=== PATIENT | male | born 1955 | race African-American/Black ===

== ENCOUNTER 2020-08-05 08:32 | Inpatient (IN) ==
[2020-08-05] MEDS ORDERED: ASPIRIN 325 MG TABLET PO STA (09:16)
[2020-08-05 09:26] LABS: Basophils # 0.1 10*3/uL (0.0-0.2); Basophils % 0.5 % (0.0-0.8); Eosinophils # 0.1 10*3/uL (0.0-0.87); Hematocrit 39.7 VOL% (42.0-52.0); Hemoglobin 12.3 GM/DL (14.0-18.0); Immature Granulocytes % 0.7 %; Immature Granulocytes Absolute 0.07 #; Lymphocytes # 1.6 10*3/uL (1.4-4.0); Lymphocytes % 17.3 % (21.2-54.2); Mean Corpuscular Volume 100.8 FL (87-102); Mean Platelet Volume 10.9 FL (9.6-12.0); Monocytes % 15.5 % (1.7-12.7); Platelet Count 190 T/CUMM (130-400); Red Blood Count 3.94 MC/CUMM (3.8-5.5); Red Cell Distribution Width 17.5 % (9.3-17.3); White Blood Count 9.4 T/CUMM (4-12)
[2020-08-05 09:54] LABS: Albumin 2.6 G/DL (3.4-5.0); Bilirubin,Total 0.4 MG/DL (0.2-1.0); Calcium 8.9 MG/DL (8.5-10.1); Osmolality,Calculated 276.8 MOS/KG (273-304); Potassium 5.1 MMOL/L (3.5-5.1); Total Protein 6.6 G/DL (6.4-8.2)
[2020-08-05] MEDS ORDERED: AZITHROMYCIN 250 MG TABLET PO STA (09:54)
[2020-08-05] MEDS ORDERED: cefTRIAXone 1,000 MG in SODIUM CHLORIDE 0.9% 100 ML IV STA (09:54)
[2020-08-05] MEDS ORDERED: DEXTROSE 50% 25 GM/50 ML VIAL IV PRN (12:51)
[2020-08-05] MEDS ORDERED: ACETAMINOPHEN 325 MG TABLET PO PRN (12:51)
[2020-08-05] MEDS ORDERED: GLUCAGON 1 MG VIAL IM PRN (12:51)
[2020-08-05] MEDS ORDERED: ONDANSETRON 4 MG/2 ML VIAL IV PRN (12:51)
[2020-08-05] MEDS ORDERED: AZITHROMYCIN INJ 500 MG in SODIUM CHLORIDE 0.9% 250 ML IV SCH (13:00)
[2020-08-05] MEDS ORDERED: cefTRIAXone 1,000 MG in SODIUM CHLORIDE 0.9% 100 ML IV SCH (13:00)
[2020-08-05] MEDS ORDERED: ALBUTEROL/IPRATROPIUM 3 ML NEB RESP TX ONE (13:31)
[2020-08-05] MEDS ORDERED: NITROGLYCERIN SL 0.4 MG TABLET SL PRN (18:29)
[2020-08-05] MEDS ORDERED: INDOMETHACIN 25 MG CAPSULE PO SCH (21:00)
[2020-08-05] MEDS ORDERED: DOCUSATE SODIUM 100 MG CAPSULE PO ONE (22:07)
[2020-08-05] MEDS: ATORVASTATIN 20 MG TABLET PO SCH (22:51)
[2020-08-05] MEDS: POLYETHYLENE GLYCOL POWDER 17 GM PACK PO PRN (22:51)
[2020-08-05] MEDS: propylthiouraciL 50 MG TABLET PO SCH (22:51)
[2020-08-05] MEDS: APIXABAN 2.5 MG TABLET PO SCH (22:52)
[2020-08-05] MEDS: METOPROLOL TARTRATE 25 MG TABLET PO SCH (22:52)
[2020-08-05] MEDS: AMIODARONE 200 MG TABLET PO SCH (22:52)
[2020-08-06 07:08] LABS: Basophils # 0.1 10*3/uL (0.0-0.2); Basophils % 0.7 % (0.0-0.8); Eosinophils # 0.1 10*3/uL (0.0-0.87); Eosinophils % 1.5 % (0.00-10.9); Hematocrit 40.3 VOL% (42.0-52.0); Hemoglobin 12.5 GM/DL (14.0-18.0); Immature Granulocytes % 0.5 %; Immature Granulocytes Absolute 0.04 #; Lymphocytes # 1.7 10*3/uL (1.4-4.0); Mean Corpuscular Volume 100.5 FL (87-102); Mean Platelet Volume 10.4 FL (9.6-12.0); Monocytes % 14.6 % (1.7-12.7); Neutrophils % 62.7 % (38.7-73.9); Platelet Count 163 T/CUMM (130-400); Red Blood Count 4.01 MC/CUMM (3.8-5.5); Red Cell Distribution Width 17.5 % (9.3-17.3); White Blood Count 8.6 T/CUMM (4-12)
[2020-08-06 07:27] LABS: Calcium 9.5 MG/DL (8.5-10.1); Osmolality,Calculated 276.1 MOS/KG (273-304); Potassium 5.7 MMOL/L (3.5-5.1)
[2020-08-06] MEDS: METOPROLOL TARTRATE 25 MG TABLET PO SCH ×2 (09:40→21:00)
[2020-08-06] MEDS: AMIODARONE 200 MG TABLET PO SCH ×2 (09:40→20:59)
[2020-08-06] MEDS: SEVELAMER CARBONATE 800 MG TABLET PO SCH ×3 (09:40→18:12)
[2020-08-06] MEDS: APIXABAN 2.5 MG TABLET PO SCH ×2 (09:40→20:59)
[2020-08-06] MEDS: allopurinoL 300 MG TABLET PO SCH (09:40)
[2020-08-06] MEDS: amLODIPine 10 MG TABLET PO SCH (09:40)
[2020-08-06] MEDS: DOXYCYCLINE HYCLATE INJ 100 MG in SODIUM CHLORIDE 0.9% 100 ML IV SCH ×2 (09:49→21:00)
[2020-08-06] MEDS ORDERED: MAGNESIUM HYDROXIDE SUSP 30 ML UDCUP PO PRN (11:25)
[2020-08-06] MEDS: POLYETHYLENE GLYCOL POWDER 17 GM PACK PO PRN (11:44)
[2020-08-06] MEDS: DOCUSATE SODIUM 100 MG CAPSULE PO SCH ×2 (11:44→20:59)
[2020-08-06] MEDS: propylthiouraciL 50 MG TABLET PO SCH ×2 (11:44→20:59)
[2020-08-06] MEDS ORDERED: cefTRIAXone 1,000 MG in SODIUM CHLORIDE 0.9% 100 ML IV SCH (13:00)
[2020-08-06] MEDS: SKIN HEALING OINT (AQUAPHOR) 50 GM TUBE TOP SCH (13:27)
[2020-08-06] MEDS ORDERED: AZITHROMYCIN INJ 500 MG in SODIUM CHLORIDE 0.9% 250 ML IV SCH (14:00)
[2020-08-06] MEDS ORDERED: HEPARIN 10,000 UNIT/10 ML VIAL IV PRN (14:16)
[2020-08-06] MEDS: ATORVASTATIN 20 MG TABLET PO SCH (20:58)
[2020-08-07 05:22] LABS: Basophils % 0.6 % (0.0-0.8); Eosinophils # 0.1 10*3/uL (0.0-0.87); Eosinophils % 1.5 % (0.00-10.9); Hematocrit 39.3 VOL% (42.0-52.0); Hemoglobin 12.3 GM/DL (14.0-18.0); Immature Granulocytes % 0.8 %; Immature Granulocytes Absolute 0.06 #; Lymphocytes # 1.6 10*3/uL (1.4-4.0); Lymphocytes % 21.5 % (21.2-54.2); Mean Corpuscular HGB Conc 31.3 GM/DL (32-36); Mean Corpuscular Volume 100.3 FL (87-102); Mean Platelet Volume 11.7 FL (9.6-12.0); Monocytes % 15.5 % (1.7-12.7); Neutrophils % 60.1 % (38.7-73.9); Platelet Count 182 T/CUMM (130-400); Red Blood Count 3.92 MC/CUMM (3.8-5.5); Red Cell Distribution Width 17.4 % (9.3-17.3); White Blood Count 7.2 T/CUMM (4-12)
[2020-08-07 05:39] LABS: Calcium 8.9 MG/DL (8.5-10.1); Osmolality,Calculated 273.1 MOS/KG (273-304); Potassium 4.5 MMOL/L (3.5-5.1)
[2020-08-07] MEDS: DOXYCYCLINE HYCLATE INJ 100 MG in SODIUM CHLORIDE 0.9% 100 ML IV SCH ×2 (08:31→21:44)
[2020-08-07] MEDS: SEVELAMER CARBONATE 800 MG TABLET PO SCH ×3 (08:31→17:10)
[2020-08-07] MEDS: SKIN HEALING OINT (AQUAPHOR) 50 GM TUBE TOP SCH (08:32)
[2020-08-07] MEDS: METOPROLOL TARTRATE 25 MG TABLET PO SCH ×2 (08:32→21:44)
[2020-08-07] MEDS: allopurinoL 300 MG TABLET PO SCH (08:32)
[2020-08-07] MEDS: amLODIPine 10 MG TABLET PO SCH (08:32)
[2020-08-07] MEDS: DOCUSATE SODIUM 100 MG CAPSULE PO SCH ×2 (08:32→21:43)
[2020-08-07] MEDS: APIXABAN 2.5 MG TABLET PO SCH (08:32)
[2020-08-07] MEDS: AMIODARONE 200 MG TABLET PO SCH ×2 (08:32→21:43)
[2020-08-07] MEDS: POLYETHYLENE GLYCOL POWDER 17 GM PACK PO SCH (08:33)
[2020-08-07] MEDS: cefTRIAXone 1,000 MG in SODIUM CHLORIDE 0.9% 100 ML IV SCH (11:34)
[2020-08-07] MEDS: WARFARIN 5 MG TABLET PO SCH (11:34)
[2020-08-07] MEDS: propylthiouraciL 50 MG TABLET PO SCH ×2 (11:34→21:43)
[2020-08-07] MEDS: LACTULOSE 20 GM/30 ML UDCUP PO PRN (11:35)
[2020-08-07] MEDS: HEPARIN DRIP 25,000 UNITS/500 ML PREMIX IV SCH (13:05)
[2020-08-07] MEDS ORDERED: TUBERCULIN SKIN TEST 0.1 ML SYRINGE INTRADERM ONE (15:00)
[2020-08-07] MEDS: ATORVASTATIN 20 MG TABLET PO SCH (21:43)
[2020-08-08] MEDS: HEPARIN DRIP 25,000 UNITS/500 ML PREMIX IV SCH ×2 (04:34→23:14)
[2020-08-08 05:33] LABS: Basophils % 0.5 % (0.0-0.8); Eosinophils # 0.1 10*3/uL (0.0-0.87); Eosinophils % 1.7 % (0.00-10.9); Hematocrit 36.2 VOL% (42.0-52.0); Hemoglobin 12.1 GM/DL (14.0-18.0); Immature Granulocytes % 0.6 %; Immature Granulocytes Absolute 0.05 #; Lymphocytes # 1.7 10*3/uL (1.4-4.0); Lymphocytes % 22.1 % (21.2-54.2); Mean Corpuscular HGB Conc 33.4 GM/DL (32-36); Mean Corpuscular Volume 97.3 FL (87-102); Mean Platelet Volume 10.9 FL (9.6-12.0); Monocytes % 14.5 % (1.7-12.7); Neutrophils % 60.6 % (38.7-73.9); Platelet Count 163 T/CUMM (130-400); Red Blood Count 3.72 MC/CUMM (3.8-5.5); Red Cell Distribution Width 17.1 % (9.3-17.3); White Blood Count 7.7 T/CUMM (4-12)
[2020-08-08 05:46] LABS: INR 1.1; PT Patient Result 12.4 SECS (10.5-12.0)
[2020-08-08 05:54] LABS: Calcium 9.5 MG/DL (8.5-10.1); Osmolality,Calculated 274.4 MOS/KG (273-304); Potassium 4.9 MMOL/L (3.5-5.1)
[2020-08-08] MEDS: WARFARIN 5 MG TABLET PO SCH (08:39)
[2020-08-08] MEDS: SEVELAMER CARBONATE 800 MG TABLET PO SCH ×3 (08:39→16:57)
[2020-08-08] MEDS: propylthiouraciL 50 MG TABLET PO SCH ×3 (08:39→21:13)
[2020-08-08] MEDS: amLODIPine 10 MG TABLET PO SCH (08:39)
[2020-08-08] MEDS: allopurinoL 300 MG TABLET PO SCH (08:39)
[2020-08-08] MEDS: DOCUSATE SODIUM 100 MG CAPSULE PO SCH ×2 (08:39→21:13)
[2020-08-08] MEDS: AMIODARONE 200 MG TABLET PO SCH ×2 (08:40→21:13)
[2020-08-08] MEDS: METOPROLOL TARTRATE 25 MG TABLET PO SCH ×2 (08:40→21:13)
[2020-08-08] MEDS: POLYETHYLENE GLYCOL POWDER 17 GM PACK PO SCH (09:03)
[2020-08-08] MEDS: SKIN HEALING OINT (AQUAPHOR) 50 GM TUBE TOP SCH (09:03)
[2020-08-08] MEDS: DOXYCYCLINE HYCLATE INJ 100 MG in SODIUM CHLORIDE 0.9% 100 ML IV SCH (09:03)
[2020-08-08] MEDS: cefTRIAXone 1,000 MG in SODIUM CHLORIDE 0.9% 100 ML IV SCH (16:00)
[2020-08-08] MEDS: DOXYCYCLINE HYCLATE 100 MG CAPSULE PO SCH ×2 (16:00→21:13)
[2020-08-08] MEDS: ATORVASTATIN 20 MG TABLET PO SCH (21:13)
[2020-08-09 06:35] LABS: INR 1.2
[2020-08-09 06:37] LABS: Partial Thromboplastin Time 97.6 SECS (23.9-33.8)
[2020-08-09] MEDS: POLYETHYLENE GLYCOL POWDER 17 GM PACK PO SCH (08:56)
[2020-08-09] MEDS: AMIODARONE 200 MG TABLET PO SCH ×2 (08:57→21:04)
[2020-08-09] MEDS: DOXYCYCLINE HYCLATE 100 MG CAPSULE PO SCH ×2 (08:57→21:03)
[2020-08-09] MEDS: DOCUSATE SODIUM 100 MG CAPSULE PO SCH ×2 (08:57→21:03)
[2020-08-09] MEDS: amLODIPine 10 MG TABLET PO SCH (08:57)
[2020-08-09] MEDS: METOPROLOL TARTRATE 25 MG TABLET PO SCH ×2 (08:57→21:03)
[2020-08-09] MEDS: allopurinoL 300 MG TABLET PO SCH (08:57)
[2020-08-09] MEDS: propylthiouraciL 50 MG TABLET PO SCH ×3 (08:57→21:03)
[2020-08-09] MEDS ORDERED: WARFARIN 5 MG TABLET PO SCH (09:00)
[2020-08-09] MEDS: SKIN HEALING OINT (AQUAPHOR) 50 GM TUBE TOP SCH (09:17)
[2020-08-09] MEDS: SEVELAMER CARBONATE 800 MG TABLET PO SCH ×3 (09:53→16:51)
[2020-08-09] MEDS: cefTRIAXone 1,000 MG in SODIUM CHLORIDE 0.9% 100 ML IV SCH (11:34)
[2020-08-09] MEDS: ATORVASTATIN 20 MG TABLET PO SCH (21:03)
[2020-08-10 05:36] LABS: Basophils # 0.1 10*3/uL (0.0-0.2); Basophils % 1.1 % (0.0-0.8); Eosinophils # 0.2 10*3/uL (0.0-0.87); Eosinophils % 2.4 % (0.00-10.9); Hematocrit 34.1 VOL% (42.0-52.0); Hemoglobin 11.1 GM/DL (14.0-18.0); Immature Granulocytes % 0.7 %; Immature Granulocytes Absolute 0.05 #; Lymphocytes # 1.6 10*3/uL (1.4-4.0); Lymphocytes % 22.3 % (21.2-54.2); Mean Corpuscular HGB Conc 32.6 GM/DL (32-36); Mean Corpuscular Volume 98.3 FL (87-102); Mean Platelet Volume 11.5 FL (9.6-12.0); Neutrophils % 55.5 % (38.7-73.9); Platelet Count 176 T/CUMM (130-400); Red Blood Count 3.47 MC/CUMM (3.8-5.5); Red Cell Distribution Width 17.2 % (9.3-17.3); White Blood Count 7.2 T/CUMM (4-12)
[2020-08-10 05:53] LABS: Calcium 9.8 MG/DL (8.5-10.1); Osmolality,Calculated 282.7 MOS/KG (273-304); Potassium 4.6 MMOL/L (3.5-5.1)
[2020-08-10 06:10] LABS: Free T4 (Free Thyroxine) 1.21 NG/DL (0.76-1.46); Thyroid Stimulating Hormone 0.08 uIU/ml (0.358-3.74)
[2020-08-10 06:24] LABS: Eosinophils 5 % (0-10); Lymphocytes 27 % (20-55); Platelet Estimate Normal; Segmented Neutrophils 55 % (50-85); Total Cells Counted 100
[2020-08-10] MEDS: amLODIPine 10 MG TABLET PO SCH (08:50)
[2020-08-10] MEDS: DOCUSATE SODIUM 100 MG CAPSULE PO SCH ×2 (08:50→20:21)
[2020-08-10] MEDS: DOXYCYCLINE HYCLATE 100 MG CAPSULE PO SCH ×2 (08:50→20:20)
[2020-08-10] MEDS: SEVELAMER CARBONATE 800 MG TABLET PO SCH ×3 (08:50→17:45)
[2020-08-10] MEDS: AMIODARONE 200 MG TABLET PO SCH (08:50)
[2020-08-10] MEDS: propylthiouraciL 50 MG TABLET PO SCH ×3 (08:50→20:20)
[2020-08-10] MEDS: allopurinoL 300 MG TABLET PO SCH (08:51)
[2020-08-10] MEDS: APIXABAN 2.5 MG TABLET PO SCH ×2 (08:51→20:20)
[2020-08-10] MEDS: POLYETHYLENE GLYCOL POWDER 17 GM PACK PO SCH (11:04)
[2020-08-10] MEDS: METOPROLOL TARTRATE 25 MG TABLET PO SCH ×2 (11:04→20:20)
[2020-08-10] MEDS: SKIN HEALING OINT (AQUAPHOR) 50 GM TUBE TOP SCH (11:46)
[2020-08-10] MEDS: cefTRIAXone 1,000 MG in SODIUM CHLORIDE 0.9% 100 ML IV SCH (13:40)
[2020-08-10] MEDS: LACTULOSE 20 GM/30 ML UDCUP PO PRN (14:26)
[2020-08-10] MEDS: ATORVASTATIN 20 MG TABLET PO SCH (20:21)
[2020-08-11 05:06] LABS: Basophils % 0.5 % (0.0-0.8); Eosinophils # 0.1 10*3/uL (0.0-0.87); Eosinophils % 1.9 % (0.00-10.9); Hematocrit 35.5 VOL% (42.0-52.0); Hemoglobin 11.2 GM/DL (14.0-18.0); Immature Granulocytes % 0.9 %; Immature Granulocytes Absolute 0.07 #; Lymphocytes # 1.8 10*3/uL (1.4-4.0); Lymphocytes % 24.1 % (21.2-54.2); Mean Corpuscular HGB Conc 31.5 GM/DL (32-36); Mean Corpuscular Volume 98.1 FL (87-102); Monocytes % 16.7 % (1.7-12.7); Neutrophils % 55.9 % (38.7-73.9); Platelet Count 169 T/CUMM (130-400); Red Blood Count 3.62 MC/CUMM (3.8-5.5); Red Cell Distribution Width 17.1 % (9.3-17.3); White Blood Count 7.4 T/CUMM (4-12)
[2020-08-11 05:19] LABS: Calcium 9.4 MG/DL (8.5-10.1); Osmolality,Calculated 280.1 MOS/KG (273-304); Potassium 4.8 MMOL/L (3.5-5.1)
[2020-08-11 05:25] LABS: Eosinophils 4 % (0-10); Hypochromasia 1+; Lymphocytes 25 % (20-55); Metamyelocytes 1 %; Segmented Neutrophils 57 % (50-85); Total Cells Counted 100
[2020-08-11 05:26] LABS: Anisocytosis 1+; Microcytosis 1+
[2020-08-11 05:27] LABS: Atypical Lymphocytes Few; Ovalocytes Slight; Platelet Estimate Adequate
[2020-08-11] MEDS: POLYETHYLENE GLYCOL POWDER 17 GM PACK PO SCH (09:04)
[2020-08-11] MEDS: propylthiouraciL 50 MG TABLET PO SCH ×3 (09:05→20:42)
[2020-08-11] MEDS: DOCUSATE SODIUM 100 MG CAPSULE PO SCH ×2 (09:05→20:42)
[2020-08-11] MEDS: SEVELAMER CARBONATE 800 MG TABLET PO SCH ×3 (09:05→16:53)
[2020-08-11] MEDS: amLODIPine 10 MG TABLET PO SCH (09:05)
[2020-08-11] MEDS: DOXYCYCLINE HYCLATE 100 MG CAPSULE PO SCH ×2 (09:05→20:42)
[2020-08-11] MEDS: METOPROLOL TARTRATE 25 MG TABLET PO SCH ×2 (09:06→22:49)
[2020-08-11] MEDS: SKIN HEALING OINT (AQUAPHOR) 50 GM TUBE TOP SCH (09:06)
[2020-08-11] MEDS: APIXABAN 2.5 MG TABLET PO SCH ×2 (09:06→20:42)
[2020-08-11] MEDS: allopurinoL 300 MG TABLET PO SCH (09:06)
[2020-08-11] MEDS: cefTRIAXone 1,000 MG in SODIUM CHLORIDE 0.9% 100 ML IV SCH (16:53)
[2020-08-11] MEDS: ATORVASTATIN 20 MG TABLET PO SCH (20:42)
[2020-08-12 05:14] LABS: Basophils % 0.6 % (0.0-0.8); Eosinophils # 0.2 10*3/uL (0.0-0.87); Eosinophils % 2.3 % (0.00-10.9); Hematocrit 37.9 VOL% (42.0-52.0); Hemoglobin 12.3 GM/DL (14.0-18.0); Immature Granulocytes % 1.2 %; Immature Granulocytes Absolute 0.08 #; Lymphocytes # 1.7 10*3/uL (1.4-4.0); Lymphocytes % 26.2 % (21.2-54.2); Mean Corpuscular HGB Conc 32.5 GM/DL (32-36); Mean Corpuscular Volume 97.2 FL (87-102); Mean Platelet Volume 10.6 FL (9.6-12.0); Monocytes % 18.1 % (1.7-12.7); Neutrophils % 51.6 % (38.7-73.9); Platelet Count 183 T/CUMM (130-400); White Blood Count 6.5 T/CUMM (4-12)
[2020-08-12 05:40] LABS: Calcium 9.4 MG/DL (8.5-10.1); Potassium 4.7 MMOL/L (3.5-5.1)
[2020-08-12 05:49] LABS: Eosinophils 4 % (0-10); Lymphocytes 25 % (20-55); Platelet Estimate Normal; Segmented Neutrophils 53 % (50-85); Total Cells Counted 100
[2020-08-12] MEDS: propylthiouraciL 50 MG TABLET PO SCH (09:10)
[2020-08-12] MEDS: DOCUSATE SODIUM 100 MG CAPSULE PO SCH (09:10)
[2020-08-12] MEDS: DOXYCYCLINE HYCLATE 100 MG CAPSULE PO SCH (09:10)
[2020-08-12] MEDS: POLYETHYLENE GLYCOL POWDER 17 GM PACK PO SCH (09:10)
[2020-08-12] MEDS: METOPROLOL TARTRATE 25 MG TABLET PO SCH (09:11)
[2020-08-12] MEDS: APIXABAN 2.5 MG TABLET PO SCH (09:11)
[2020-08-12] MEDS: allopurinoL 300 MG TABLET PO SCH (09:11)
[2020-08-12] MEDS: amLODIPine 10 MG TABLET PO SCH (09:11)
[2020-08-12] MEDS: SEVELAMER CARBONATE 800 MG TABLET PO SCH (09:11)
[2020-08-12] MEDS: SKIN HEALING OINT (AQUAPHOR) 50 GM TUBE TOP SCH (09:12)
[2020-08-12 11:44] VITALS: BP 124/64
== END 2020-08-12 13:10 | DRG 193 ==
LOC: EDBD → N.EDINP 08:32 → N.ED 08:32 → N.5E 13:56
PROVIDERS: ADMIT Internal Medicine; ATTEND Internal Medicine

== ENCOUNTER 2020-08-27 04:38 | Inpatient (IN) ==
[2020-08-27] MEDS ORDERED: PIPERACILLIN/TAZOBACTAM 3,375 MG in SODIUM CHLORIDE 0.9% 100 ML IV STA (04:52)
[2020-08-27] MEDS ORDERED: methylPREDNISolone SOD SUC 125 MG/2 ML VIAL IV STA (04:52)
[2020-08-27 04:57] LABS: Basophils % 0.4 % (0.0-0.8); Eosinophils # 0.2 10*3/uL (0.0-0.87); Eosinophils % 1.7 % (0.00-10.9); Hematocrit 36.4 VOL% (42.0-52.0); Hemoglobin 11.6 GM/DL (14.0-18.0); Immature Granulocytes % 0.8 %; Immature Granulocytes Absolute 0.08 #; Lymphocytes # 1.5 10*3/uL (1.4-4.0); Lymphocytes % 14.9 % (21.2-54.2); Mean Corpuscular HGB Conc 31.9 GM/DL (32-36); Mean Corpuscular Volume 97.6 FL (87-102); Mean Platelet Volume 12.4 FL (9.6-12.0); Monocytes % 20.3 % (1.7-12.7); Neutrophils % 61.9 % (38.7-73.9); Platelet Count 121 T/CUMM (130-400); Red Blood Count 3.73 MC/CUMM (3.8-5.5); Red Cell Distribution Width 17.4 % (9.3-17.3); White Blood Count 10.2 T/CUMM (4-12)
[2020-08-27] MEDS ORDERED: ALBUTEROL NEB SOLN 5 MG/ML 20 ML/BOTTLE CONT NEB SCH (05:00)
[2020-08-27 05:08] LABS: INR 1.1; PT Patient Result 12.2 SECS (10.5-12.0); Partial Thromboplastin Time 40.5 SECS (23.9-33.8)
[2020-08-27 05:17] LABS: Eosinophils 1 % (0-10); Hypochromasia Slight; Lymphocytes 14 % (20-55); Microcytosis Slight; Platelet Estimate Normal; Segmented Neutrophils 62 % (50-85); Total Cells Counted 100
[2020-08-27 05:28] LABS: Albumin 2.9 G/DL (3.4-5.0); Bilirubin,Total 0.4 MG/DL (0.2-1.0); Calcium 9.2 MG/DL (8.5-10.1); Potassium 4.5 MMOL/L (3.5-5.1); Total Protein 6.4 G/DL (6.4-8.2)
[2020-08-27] MEDS ORDERED: DEXTROSE 50% 25 GM/50 ML VIAL IV PRN (05:49)
[2020-08-27] MEDS ORDERED: GLUCAGON 1 MG VIAL IM PRN (05:49)
[2020-08-27] MEDS ORDERED: LEVOFLOXACIN INJ 750 MG/150 ML PREMIX IV ONE (05:53)
[2020-08-27] MEDS: ALBUTEROL/IPRATROPIUM 3 ML NEB RESP TX SCH ×3 (07:40→20:36)
[2020-08-27] MEDS: PANTOPRAZOLE 40 MG TABLET PO SCH (08:06)
[2020-08-27] MEDS: HEPARIN 5,000 UNIT/1 ML VIAL SUBCUT SCH ×3 (08:06→23:03)
[2020-08-27] MEDS ORDERED: HEPARIN 10,000 UNIT/10 ML VIAL IV SCH (11:00)
[2020-08-27] MEDS: PIPERACILLIN/TAZOBACTAM 3,375 MG in SODIUM CHLORIDE 0.9% 100 ML IV SCH ×2 (14:18→23:02)
[2020-08-27] MEDS: APIXABAN 2.5 MG TABLET PO SCH (21:13)
[2020-08-27] MEDS: ATORVASTATIN 20 MG TABLET PO SCH (21:13)
[2020-08-27] MEDS: METOPROLOL TARTRATE 25 MG TABLET PO SCH (21:13)
[2020-08-28] MEDS: ALBUTEROL/IPRATROPIUM 3 ML NEB RESP TX SCH ×4 (00:48→19:45)
[2020-08-28 05:18] LABS: Basophils % 0.2 % (0.0-0.8); Hematocrit 37.3 VOL% (42.0-52.0); Immature Granulocytes Absolute 0.11 #; Lymphocytes % 9.3 % (21.2-54.2); Mean Corpuscular HGB Conc 32.2 GM/DL (32-36); Mean Corpuscular Volume 96.4 FL (87-102); Monocytes % 10.9 % (1.7-12.7); Neutrophils % 78.6 % (38.7-73.9); Platelet Count 113 T/CUMM (130-400); Red Blood Count 3.87 MC/CUMM (3.8-5.5); Red Cell Distribution Width 17.6 % (9.3-17.3); White Blood Count 10.7 T/CUMM (4-12)
[2020-08-28 05:31] LABS: Calcium 9.5 MG/DL (8.5-10.1); Potassium 4.4 MMOL/L (3.5-5.1)
[2020-08-28] MEDS: APIXABAN 2.5 MG TABLET PO SCH ×3 (07:57→21:11)
[2020-08-28] MEDS: PANTOPRAZOLE 40 MG TABLET PO SCH ×2 (07:57→08:53)
[2020-08-28] MEDS: METOPROLOL TARTRATE 25 MG TABLET PO SCH ×3 (07:58→21:11)
[2020-08-28] MEDS: amLODIPine 10 MG TABLET PO SCH ×2 (07:58→08:53)
[2020-08-28] MEDS: HEPARIN 5,000 UNIT/1 ML VIAL SUBCUT SCH (08:54)
[2020-08-28] MEDS ORDERED: MAGNESIUM HYDROXIDE SUSP 30 ML UDCUP PO PRN (09:27)
[2020-08-28] MEDS: PIPERACILLIN/TAZOBACTAM 3,375 MG in SODIUM CHLORIDE 0.9% 100 ML IV SCH ×2 (11:59→23:44)
[2020-08-28] MEDS: DOCUSATE SODIUM 100 MG CAPSULE PO PRN (14:23)
[2020-08-28] MEDS: POLYETHYLENE GLYCOL POWDER 17 GM PACK PO PRN (14:23)
[2020-08-28] MEDS: SEVELAMER CARBONATE 800 MG TABLET PO SCH (16:20)
[2020-08-28] MEDS: propylthiouraciL 50 MG TABLET PO SCH (21:11)
[2020-08-28] MEDS: ATORVASTATIN 20 MG TABLET PO SCH (21:11)
[2020-08-28] MEDS: ACETAMINOPHEN 325 MG TABLET PO PRN (23:48)
[2020-08-28] MEDS: guaiFENesin/CODEINE 5 ML LIQUID PO PRN (23:49)
[2020-08-29] MEDS: ALBUTEROL/IPRATROPIUM 3 ML NEB RESP TX SCH ×4 (00:55→19:24)
[2020-08-29 05:43] LABS: Basophils % 0.2 % (0.0-0.8); Eosinophils % 0.3 % (0.00-10.9); Hematocrit 35.2 VOL% (42.0-52.0); Hemoglobin 11.3 GM/DL (14.0-18.0); Immature Granulocytes % 0.6 %; Immature Granulocytes Absolute 0.07 #; Lymphocytes # 1.8 10*3/uL (1.4-4.0); Lymphocytes % 16.3 % (21.2-54.2); Mean Corpuscular HGB Conc 32.1 GM/DL (32-36); Mean Corpuscular Volume 97.2 FL (87-102); Mean Platelet Volume 11.6 FL (9.6-12.0); Neutrophils % 69.6 % (38.7-73.9); Platelet Count 109 T/CUMM (130-400); Red Blood Count 3.62 MC/CUMM (3.8-5.5); Red Cell Distribution Width 17.4 % (9.3-17.3); White Blood Count 11.2 T/CUMM (4-12)
[2020-08-29] MEDS ORDERED: LEVOFLOXACIN INJ 500 MG/100 ML PREMIX IV SCH (06:00)
[2020-08-29 06:28] LABS: Calcium 9.1 MG/DL (8.5-10.1); Potassium 4.4 MMOL/L (3.5-5.1)
[2020-08-29 06:30] LABS: Hypochromasia Slight; Microcytosis Slight; Target Cells Slight
[2020-08-29 06:31] LABS: Platelet Estimate Decreased
[2020-08-29] MEDS: SEVELAMER CARBONATE 800 MG TABLET PO SCH ×3 (09:13→17:34)
[2020-08-29] MEDS: APIXABAN 2.5 MG TABLET PO SCH ×2 (09:13→21:34)
[2020-08-29] MEDS: amLODIPine 10 MG TABLET PO SCH (09:13)
[2020-08-29] MEDS: METOPROLOL TARTRATE 25 MG TABLET PO SCH ×2 (09:13→21:35)
[2020-08-29] MEDS: allopurinoL 300 MG TABLET PO SCH (09:14)
[2020-08-29] MEDS: SKIN HEALING OINT (AQUAPHOR) 50 GM TUBE TOP SCH (09:14)
[2020-08-29] MEDS: propylthiouraciL 50 MG TABLET PO SCH ×3 (09:14→21:34)
[2020-08-29] MEDS: PANTOPRAZOLE 40 MG TABLET PO SCH (09:14)
[2020-08-29] MEDS: BENZONATATE 100 MG CAPSULE PO PRN ×2 (11:02→21:35)
[2020-08-29] MEDS: PIPERACILLIN/TAZOBACTAM 3,375 MG in SODIUM CHLORIDE 0.9% 100 ML IV SCH (14:35)
[2020-08-29] MEDS: AMPICILLIN INJ 2,000 MG in SODIUM CHLORIDE 0.9% 100 ML IV SCH (15:33)
[2020-08-29] MEDS: MAGNESIUM HYDROXIDE SUSP 30 ML UDCUP PO PRN (15:35)
[2020-08-29] MEDS: guaiFENesin/CODEINE 5 ML LIQUID PO PRN (18:38)
[2020-08-29] MEDS: ATORVASTATIN 20 MG TABLET PO SCH (21:34)
[2020-08-29] MEDS: POLYETHYLENE GLYCOL POWDER 17 GM PACK PO PRN (21:45)
[2020-08-30] MEDS: AMPICILLIN INJ 2,000 MG in SODIUM CHLORIDE 0.9% 100 ML IV SCH ×2 (02:00→15:08)
[2020-08-30 06:10] LABS: Basophils % 0.4 % (0.0-0.8); Eosinophils # 0.1 10*3/uL (0.0-0.87); Eosinophils % 1.4 % (0.00-10.9); Hematocrit 34.2 VOL% (42.0-52.0); Hemoglobin 10.7 GM/DL (14.0-18.0); Immature Granulocytes % 0.7 %; Immature Granulocytes Absolute 0.07 #; Lymphocytes # 1.8 10*3/uL (1.4-4.0); Lymphocytes % 18.5 % (21.2-54.2); Mean Corpuscular HGB Conc 31.3 GM/DL (32-36); Mean Corpuscular Volume 98.6 FL (87-102); Mean Platelet Volume 12.3 FL (9.6-12.0); Monocytes % 16.7 % (1.7-12.7); Neutrophils % 62.3 % (38.7-73.9); Platelet Count 119 T/CUMM (130-400); Red Blood Count 3.47 MC/CUMM (3.8-5.5); Red Cell Distribution Width 17.6 % (9.3-17.3); White Blood Count 9.6 T/CUMM (4-12)
[2020-08-30 06:23] LABS: Osmolality,Calculated 282.8 MOS/KG (273-304); Potassium 4.5 MMOL/L (3.5-5.1)
[2020-08-30 06:45] LABS: Anisocytosis 1+; Macrocytosis 2+; Platelet Estimate Adequate
[2020-08-30 06:49] LABS: Ovalocytes Few; Tear Drop Cells Few
[2020-08-30] MEDS: ALBUTEROL/IPRATROPIUM 3 ML NEB RESP TX SCH ×4 (06:55→19:07)
[2020-08-30] MEDS: MAGNESIUM HYDROXIDE SUSP 30 ML UDCUP PO PRN (09:46)
[2020-08-30] MEDS: propylthiouraciL 50 MG TABLET PO SCH ×3 (09:47→21:05)
[2020-08-30] MEDS: BENZONATATE 100 MG CAPSULE PO PRN (09:47)
[2020-08-30] MEDS: PANTOPRAZOLE 40 MG TABLET PO SCH (09:47)
[2020-08-30] MEDS: DOCUSATE SODIUM 100 MG CAPSULE PO PRN (09:47)
[2020-08-30] MEDS: allopurinoL 300 MG TABLET PO SCH (09:47)
[2020-08-30] MEDS: METOPROLOL TARTRATE 25 MG TABLET PO SCH ×2 (09:48→21:05)
[2020-08-30] MEDS: SEVELAMER CARBONATE 800 MG TABLET PO SCH ×3 (09:48→17:16)
[2020-08-30] MEDS: APIXABAN 2.5 MG TABLET PO SCH ×2 (09:49→21:05)
[2020-08-30] MEDS: amLODIPine 10 MG TABLET PO SCH (09:49)
[2020-08-30] MEDS: SKIN HEALING OINT (AQUAPHOR) 50 GM TUBE TOP SCH (09:50)
[2020-08-30] MEDS: LACTULOSE 20 GM/30 ML UDCUP PO SCH ×2 (11:47→17:16)
[2020-08-30] MEDS: ATORVASTATIN 20 MG TABLET PO SCH (21:05)
[2020-08-30] MEDS: POLYETHYLENE GLYCOL POWDER 17 GM PACK PO PRN (21:07)
[2020-08-31] MEDS: ALBUTEROL/IPRATROPIUM 3 ML NEB RESP TX SCH ×4 (00:03→19:32)
[2020-08-31] MEDS: LACTULOSE 20 GM/30 ML UDCUP PO SCH ×3 (00:06→12:57)
[2020-08-31] MEDS: AMPICILLIN INJ 2,000 MG in SODIUM CHLORIDE 0.9% 100 ML IV SCH ×2 (02:05→14:25)
[2020-08-31] MEDS: LEVOFLOXACIN INJ 500 MG/100 ML PREMIX IV SCH (05:35)
[2020-08-31 06:10] LABS: Basophils % 0.3 % (0.0-0.8); Eosinophils # 0.2 10*3/uL (0.0-0.87); Eosinophils % 1.9 % (0.00-10.9); Hematocrit 34.3 VOL% (42.0-52.0); Hemoglobin 10.9 GM/DL (14.0-18.0); Immature Granulocytes % 0.9 %; Lymphocytes # 1.7 10*3/uL (1.4-4.0); Lymphocytes % 15.2 % (21.2-54.2); Mean Corpuscular HGB Conc 31.8 GM/DL (32-36); Mean Corpuscular Volume 97.4 FL (87-102); Mean Platelet Volume 12.4 FL (9.6-12.0); Monocytes % 11.7 % (1.7-12.7); Platelet Count 148 T/CUMM (130-400); Red Blood Count 3.52 MC/CUMM (3.8-5.5); Red Cell Distribution Width 17.7 % (9.3-17.3); White Blood Count 10.8 T/CUMM (4-12)
[2020-08-31 06:22] LABS: Calcium 9.3 MG/DL (8.5-10.1); Osmolality,Calculated 290.7 MOS/KG (273-304); Potassium 4.4 MMOL/L (3.5-5.1)
[2020-08-31] MEDS: METOPROLOL TARTRATE 25 MG TABLET PO SCH ×2 (10:26→21:15)
[2020-08-31] MEDS: SEVELAMER CARBONATE 800 MG TABLET PO SCH ×3 (10:26→17:32)
[2020-08-31] MEDS: PANTOPRAZOLE 40 MG TABLET PO SCH (10:27)
[2020-08-31] MEDS: propylthiouraciL 50 MG TABLET PO SCH ×3 (10:27→21:15)
[2020-08-31] MEDS: APIXABAN 2.5 MG TABLET PO SCH ×2 (10:27→21:17)
[2020-08-31] MEDS: allopurinoL 300 MG TABLET PO SCH (10:27)
[2020-08-31] MEDS: amLODIPine 10 MG TABLET PO SCH (10:27)
[2020-08-31] MEDS: SKIN HEALING OINT (AQUAPHOR) 50 GM TUBE TOP SCH (10:28)
[2020-08-31] MEDS: ONDANSETRON 4 MG/2 ML VIAL IV PRN (14:22)
[2020-08-31] MEDS ORDERED: LACTULOSE 20 GM/30 ML UDCUP PO PRN (14:29)
[2020-08-31] MEDS: ACETAMINOPHEN 325 MG TABLET PO PRN (14:30)
[2020-08-31] MEDS: guaiFENesin/CODEINE 5 ML LIQUID PO SCH ×3 (15:28→21:33)
[2020-08-31] MEDS: BENZONATATE 100 MG CAPSULE PO PRN ×2 (17:33→21:17)
[2020-08-31] MEDS: ATORVASTATIN 20 MG TABLET PO SCH (21:17)
[2020-09-01] MEDS: ALBUTEROL/IPRATROPIUM 3 ML NEB RESP TX SCH ×4 (01:22→19:02)
[2020-09-01] MEDS: AMPICILLIN INJ 2,000 MG in SODIUM CHLORIDE 0.9% 100 ML IV SCH ×2 (02:00→13:53)
[2020-09-01] MEDS: guaiFENesin/CODEINE 5 ML LIQUID PO SCH ×6 (02:32→21:38)
[2020-09-01 05:28] LABS: Basophils # 0.1 10*3/uL (0.0-0.2); Basophils % 0.4 % (0.0-0.8); Eosinophils # 0.2 10*3/uL (0.0-0.87); Eosinophils % 2.1 % (0.00-10.9); Hematocrit 34.2 VOL% (42.0-52.0); Hemoglobin 10.9 GM/DL (14.0-18.0); Immature Granulocytes % 0.7 %; Immature Granulocytes Absolute 0.08 #; Lymphocytes # 1.5 10*3/uL (1.4-4.0); Lymphocytes % 12.6 % (21.2-54.2); Mean Corpuscular HGB Conc 31.9 GM/DL (32-36); Mean Corpuscular Volume 96.3 FL (87-102); Mean Platelet Volume 12.5 FL (9.6-12.0); Monocytes % 9.3 % (1.7-12.7); Neutrophils % 74.9 % (38.7-73.9); Platelet Count 135 T/CUMM (130-400); Red Blood Count 3.55 MC/CUMM (3.8-5.5); Red Cell Distribution Width 17.5 % (9.3-17.3); White Blood Count 11.7 T/CUMM (4-12)
[2020-09-01 05:52] LABS: Calcium 9.5 MG/DL (8.5-10.1); Osmolality,Calculated 282.2 MOS/KG (273-304); Potassium 4.8 MMOL/L (3.5-5.1)
[2020-09-01] MEDS: APIXABAN 2.5 MG TABLET PO SCH ×2 (08:29→20:39)
[2020-09-01] MEDS: METOPROLOL TARTRATE 25 MG TABLET PO SCH ×2 (08:30→20:39)
[2020-09-01] MEDS: propylthiouraciL 50 MG TABLET PO SCH ×3 (08:30→20:39)
[2020-09-01] MEDS: PANTOPRAZOLE 40 MG TABLET PO SCH (08:30)
[2020-09-01] MEDS: SEVELAMER CARBONATE 800 MG TABLET PO SCH ×3 (08:30→17:55)
[2020-09-01] MEDS: allopurinoL 300 MG TABLET PO SCH (08:30)
[2020-09-01] MEDS: amLODIPine 10 MG TABLET PO SCH (08:31)
[2020-09-01] MEDS: SKIN HEALING OINT (AQUAPHOR) 50 GM TUBE TOP SCH (08:33)
[2020-09-01] MEDS: ATORVASTATIN 20 MG TABLET PO SCH (20:39)
[2020-09-01] MEDS: ONDANSETRON 4 MG/2 ML VIAL IV PRN (23:46)
[2020-09-02] MEDS: ALBUTEROL/IPRATROPIUM 3 ML NEB RESP TX SCH ×4 (00:07→19:50)
[2020-09-02] MEDS: AMPICILLIN INJ 2,000 MG in SODIUM CHLORIDE 0.9% 100 ML IV SCH ×2 (03:07→15:12)
[2020-09-02] MEDS: LEVOFLOXACIN INJ 500 MG/100 ML PREMIX IV SCH (04:51)
[2020-09-02 05:21] LABS: Basophils # 0.1 10*3/uL (0.0-0.2); Basophils % 0.5 % (0.0-0.8); Eosinophils # 0.2 10*3/uL (0.0-0.87); Eosinophils % 1.8 % (0.00-10.9); Hematocrit 35.4 VOL% (42.0-52.0); Hemoglobin 11.2 GM/DL (14.0-18.0); Immature Granulocytes % 1.2 %; Immature Granulocytes Absolute 0.11 #; Lymphocytes # 1.4 10*3/uL (1.4-4.0); Lymphocytes % 15.2 % (21.2-54.2); Mean Corpuscular HGB Conc 31.6 GM/DL (32-36); Mean Corpuscular Volume 97.5 FL (87-102); Mean Platelet Volume 11.9 FL (9.6-12.0); Monocytes % 12.2 % (1.7-12.7); Neutrophils % 69.1 % (38.7-73.9); Platelet Count 142 T/CUMM (130-400); Red Blood Count 3.63 MC/CUMM (3.8-5.5); Red Cell Distribution Width 17.6 % (9.3-17.3); White Blood Count 9.5 T/CUMM (4-12)
[2020-09-02 05:35] LABS: Calcium 9.3 MG/DL (8.5-10.1); Potassium 4.6 MMOL/L (3.5-5.1)
[2020-09-02] MEDS: METOPROLOL TARTRATE 25 MG TABLET PO SCH ×2 (09:00→21:12)
[2020-09-02] MEDS: amLODIPine 10 MG TABLET PO SCH (09:00)
[2020-09-02] MEDS: allopurinoL 300 MG TABLET PO SCH (09:00)
[2020-09-02] MEDS: APIXABAN 2.5 MG TABLET PO SCH ×2 (09:00→21:13)
[2020-09-02] MEDS: SKIN HEALING OINT (AQUAPHOR) 50 GM TUBE TOP SCH (09:00)
[2020-09-02] MEDS: SEVELAMER CARBONATE 800 MG TABLET PO SCH ×3 (09:00→16:10)
[2020-09-02] MEDS: propylthiouraciL 50 MG TABLET PO SCH ×3 (09:00→21:13)
[2020-09-02] MEDS: PANTOPRAZOLE 40 MG TABLET PO SCH (09:00)
[2020-09-02] MEDS: CHLORHEXIDINE 0.12% ORAL RINSE 60 ML BOTTLE SWISH/SPIT SCH ×3 (09:01→21:13)
[2020-09-02] MEDS: ATORVASTATIN 20 MG TABLET PO SCH (21:12)
[2020-09-03] MEDS: AMPICILLIN INJ 2,000 MG in SODIUM CHLORIDE 0.9% 100 ML IV SCH ×2 (01:39→14:32)
[2020-09-03] MEDS: ALBUTEROL/IPRATROPIUM 3 ML NEB RESP TX SCH ×4 (04:18→19:24)
[2020-09-03 05:34] LABS: Basophils # 0.1 10*3/uL (0.0-0.2); Basophils % 0.7 % (0.0-0.8); Eosinophils # 0.2 10*3/uL (0.0-0.87); Eosinophils % 1.7 % (0.00-10.9); Hematocrit 33.5 VOL% (42.0-52.0); Hemoglobin 10.9 GM/DL (14.0-18.0); Immature Granulocytes % 1.7 %; Immature Granulocytes Absolute 0.16 #; Lymphocytes # 1.4 10*3/uL (1.4-4.0); Lymphocytes % 15.1 % (21.2-54.2); Mean Corpuscular HGB Conc 32.5 GM/DL (32-36); Mean Platelet Volume 11.3 FL (9.6-12.0); Monocytes % 12.7 % (1.7-12.7); Neutrophils % 68.1 % (38.7-73.9); Platelet Count 153 T/CUMM (130-400); Red Blood Count 3.49 MC/CUMM (3.8-5.5); Red Cell Distribution Width 17.5 % (9.3-17.3); White Blood Count 9.2 T/CUMM (4-12)
[2020-09-03 05:53] LABS: Osmolality,Calculated 268.4 MOS/KG (273-304); Potassium 4.6 MMOL/L (3.5-5.1)
[2020-09-03] MEDS: SEVELAMER CARBONATE 800 MG TABLET PO SCH ×3 (10:43→18:19)
[2020-09-03] MEDS: METOPROLOL TARTRATE 25 MG TABLET PO SCH ×2 (10:44→20:18)
[2020-09-03] MEDS: allopurinoL 300 MG TABLET PO SCH (10:44)
[2020-09-03] MEDS: CHLORHEXIDINE 0.12% ORAL RINSE 60 ML BOTTLE SWISH/SPIT SCH ×2 (10:44→20:19)
[2020-09-03] MEDS: amLODIPine 10 MG TABLET PO SCH (10:44)
[2020-09-03] MEDS: PANTOPRAZOLE 40 MG TABLET PO SCH (10:44)
[2020-09-03] MEDS: APIXABAN 2.5 MG TABLET PO SCH ×2 (10:44→20:19)
[2020-09-03] MEDS: propylthiouraciL 50 MG TABLET PO SCH ×3 (10:44→20:19)
[2020-09-03] MEDS: SKIN HEALING OINT (AQUAPHOR) 50 GM TUBE TOP SCH (10:55)
[2020-09-03] MEDS ORDERED: SUCCINYLCHOLINE 200 MG/10 ML VIAL ONE (11:36)
[2020-09-03] MEDS ORDERED: LIDOCAINE 2% 5 ML VIAL ONE (11:36)
[2020-09-03] MEDS ORDERED: fentaNYL 100 MCG/2 ML VIAL ONE (11:36)
[2020-09-03] MEDS ORDERED: MIDAZOLAM 2 MG/2 ML VIAL ONE (11:36)
[2020-09-03] MEDS ORDERED: ONDANSETRON 4 MG/2 ML VIAL ONE (11:36)
[2020-09-03] MEDS ORDERED: DEXAMETHASONE 4 MG/1 ML VIAL ONE (11:36)
[2020-09-03] MEDS ORDERED: propofoL 200 MG/20 ML VIAL IV ONE (11:36)
[2020-09-03] MEDS ORDERED: LIDOCAINE 1%/EPI INJ 20 ML VIAL ONE (11:37)
[2020-09-03] MEDS: SODIUM CHLORIDE 0.9% 250 ML IV SCH ×2 (12:13→13:40)
[2020-09-03] MEDS ORDERED: PHENYLEPHRINE 1 MG/10 ML SYRINGE IV ONE (12:31)
[2020-09-03] MEDS ORDERED: GLYCOPYRROLATE 0.4 MG/2 ML VIAL ONE (13:14)
[2020-09-03] MEDS: ATORVASTATIN 20 MG TABLET PO SCH (20:19)
[2020-09-03] MEDS: ACETAMINOPHEN 325 MG TABLET PO PRN (20:21)
[2020-09-04] MEDS: ALBUTEROL/IPRATROPIUM 3 ML NEB RESP TX SCH ×4 (00:54→19:17)
[2020-09-04] MEDS: AMPICILLIN INJ 2,000 MG in SODIUM CHLORIDE 0.9% 100 ML IV SCH ×2 (02:10→14:15)
[2020-09-04 06:13] LABS: Basophils % 0.1 % (0.0-0.8); Hematocrit 34.4 VOL% (42.0-52.0); Hemoglobin 11.1 GM/DL (14.0-18.0); Immature Granulocytes % 1.6 %; Immature Granulocytes Absolute 0.16 #; Lymphocytes # 0.8 10*3/uL (1.4-4.0); Lymphocytes % 7.7 % (21.2-54.2); Mean Corpuscular HGB Conc 32.3 GM/DL (32-36); Mean Corpuscular Volume 96.4 FL (87-102); Mean Platelet Volume 11.9 FL (9.6-12.0); Monocytes % 6.3 % (1.7-12.7); Neutrophils % 84.3 % (38.7-73.9); Platelet Count 160 T/CUMM (130-400); Red Blood Count 3.57 MC/CUMM (3.8-5.5); Red Cell Distribution Width 17.5 % (9.3-17.3); White Blood Count 10.1 T/CUMM (4-12)
[2020-09-04] MEDS: LEVOFLOXACIN INJ 500 MG/100 ML PREMIX IV SCH (06:27)
[2020-09-04 06:48] LABS: Calcium 9.5 MG/DL (8.5-10.1); Osmolality,Calculated 278.4 MOS/KG (273-304); Potassium 5.5 MMOL/L (3.5-5.1)
[2020-09-04] MEDS: ACETAMINOPHEN 325 MG TABLET PO PRN (08:37)
[2020-09-04] MEDS: METOPROLOL TARTRATE 25 MG TABLET PO SCH ×2 (08:42→21:38)
[2020-09-04] MEDS: amLODIPine 10 MG TABLET PO SCH (08:42)
[2020-09-04] MEDS: SEVELAMER CARBONATE 800 MG TABLET PO SCH ×3 (08:42→16:30)
[2020-09-04] MEDS: APIXABAN 2.5 MG TABLET PO SCH ×2 (08:42→21:38)
[2020-09-04] MEDS: propylthiouraciL 50 MG TABLET PO SCH ×3 (08:42→21:38)
[2020-09-04] MEDS: PANTOPRAZOLE 40 MG TABLET PO SCH (08:43)
[2020-09-04] MEDS: allopurinoL 300 MG TABLET PO SCH (08:43)
[2020-09-04] MEDS: CHLORHEXIDINE 0.12% ORAL RINSE 60 ML BOTTLE SWISH/SPIT SCH ×2 (08:43→21:42)
[2020-09-04] MEDS: SKIN HEALING OINT (AQUAPHOR) 50 GM TUBE TOP SCH (08:43)
[2020-09-04] MEDS: ATORVASTATIN 20 MG TABLET PO SCH (21:39)
[2020-09-05] MEDS: ALBUTEROL/IPRATROPIUM 3 ML NEB RESP TX SCH ×4 (00:06→19:35)
[2020-09-05] MEDS: ACETAMINOPHEN 325 MG TABLET PO PRN ×2 (02:28→22:14)
[2020-09-05] MEDS: AMPICILLIN INJ 2,000 MG in SODIUM CHLORIDE 0.9% 100 ML IV SCH ×2 (02:30→17:19)
[2020-09-05 06:36] LABS: Basophils % 0.2 % (0.0-0.8); Eosinophils % 0.1 % (0.00-10.9); Hematocrit 31.1 VOL% (42.0-52.0); Hemoglobin 9.9 GM/DL (14.0-18.0); Immature Granulocytes % 1.6 %; Immature Granulocytes Absolute 0.17 #; Lymphocytes # 1.3 10*3/uL (1.4-4.0); Mean Corpuscular HGB Conc 31.8 GM/DL (32-36); Mean Corpuscular Volume 95.7 FL (87-102); Mean Platelet Volume 11.1 FL (9.6-12.0); Monocytes % 10.3 % (1.7-12.7); Neutrophils % 75.8 % (38.7-73.9); Platelet Count 161 T/CUMM (130-400); Red Blood Count 3.25 MC/CUMM (3.8-5.5); Red Cell Distribution Width 17.4 % (9.3-17.3); White Blood Count 10.5 T/CUMM (4-12)
[2020-09-05 07:07] LABS: Calcium 9.1 MG/DL (8.5-10.1); Osmolality,Calculated 280.5 MOS/KG (273-304)
[2020-09-05] MEDS: SKIN HEALING OINT (AQUAPHOR) 50 GM TUBE TOP SCH (12:23)
[2020-09-05] MEDS: SEVELAMER CARBONATE 800 MG TABLET PO SCH ×3 (12:23→17:18)
[2020-09-05] MEDS: APIXABAN 2.5 MG TABLET PO SCH ×2 (12:24→21:28)
[2020-09-05] MEDS: METOPROLOL TARTRATE 25 MG TABLET PO SCH ×2 (12:24→21:28)
[2020-09-05] MEDS: CHLORHEXIDINE 0.12% ORAL RINSE 60 ML BOTTLE SWISH/SPIT SCH ×2 (12:24→23:50)
[2020-09-05] MEDS: propylthiouraciL 50 MG TABLET PO SCH ×3 (12:24→21:29)
[2020-09-05] MEDS: amLODIPine 10 MG TABLET PO SCH (12:24)
[2020-09-05] MEDS: PANTOPRAZOLE 40 MG TABLET PO SCH (12:24)
[2020-09-05] MEDS: allopurinoL 300 MG TABLET PO SCH (12:25)
[2020-09-05 13:37] LABS: Alanine Aminotransferase 11 U/L (16-61); Albumin 2.4 G/DL (3.4-5.0); Alkaline Phosphatase 57 U/L (45-117); Aspartate Amino Transferase 16 U/L (0-37); Bilirubin,Indirect 0.3 MG/DL (0.0-1.0); Bilirubin,Total < 0.39 MG/DL (0.2-1.0); Total Protein 6.9 G/DL (6.4-8.2)
[2020-09-05 16:32] LABS: Hepatitis B Core IgM Quant < 0.05 Index; Hepatitis B Surface Ag Quant < 0.10 Index; Hepatitis B Surface Ag Result Non-Reactive (NonReactive); Hepatitis C Virus Ab Quant 0.02 Index; Hepatitis C Virus Ab Result Non-Reactive (NonReactive)
[2020-09-05] MEDS: ATORVASTATIN 20 MG TABLET PO SCH (21:28)
[2020-09-06] MEDS: ALBUTEROL/IPRATROPIUM 3 ML NEB RESP TX SCH ×3 (00:15→12:27)
[2020-09-06 05:13] LABS: Basophils % 0.5 % (0.0-0.8); Eosinophils % 0.5 % (0.00-10.9); Hematocrit 32.2 VOL% (42.0-52.0); Hemoglobin 10.3 GM/DL (14.0-18.0); Immature Granulocytes Absolute 0.17 #; Lymphocytes # 1.4 10*3/uL (1.4-4.0); Lymphocytes % 16.9 % (21.2-54.2); Mean Corpuscular Volume 96.1 FL (87-102); Mean Platelet Volume 11.6 FL (9.6-12.0); Monocytes % 16.3 % (1.7-12.7); Neutrophils % 63.8 % (38.7-73.9); Platelet Count 172 T/CUMM (130-400); Red Blood Count 3.35 MC/CUMM (3.8-5.5); Red Cell Distribution Width 17.4 % (9.3-17.3); White Blood Count 8.4 T/CUMM (4-12)
[2020-09-06 05:37] LABS: Calcium 9.4 MG/DL (8.5-10.1); Potassium 4.7 MMOL/L (3.5-5.1)
[2020-09-06] MEDS: LEVOFLOXACIN INJ 500 MG/100 ML PREMIX IV SCH (05:42)
[2020-09-06 05:50] LABS: Hypochromasia 1+; Lymphocytes 21 % (20-55); Myelocytes 1 %; Segmented Neutrophils 67 % (50-85); Target Cells Slight; Total Cells Counted 100
[2020-09-06 05:51] LABS: Anisocytosis 1+; Macrocytosis 1+; Platelet Estimate Adequate
[2020-09-06] MEDS: propylthiouraciL 50 MG TABLET PO SCH ×2 (10:47→12:18)
[2020-09-06] MEDS: METOPROLOL TARTRATE 25 MG TABLET PO SCH (10:47)
[2020-09-06] MEDS: SKIN HEALING OINT (AQUAPHOR) 50 GM TUBE TOP SCH (10:47)
[2020-09-06] MEDS: CHLORHEXIDINE 0.12% ORAL RINSE 60 ML BOTTLE SWISH/SPIT SCH (10:47)
[2020-09-06] MEDS: APIXABAN 2.5 MG TABLET PO SCH (10:47)
[2020-09-06] MEDS: SEVELAMER CARBONATE 800 MG TABLET PO SCH ×2 (10:47→12:18)
[2020-09-06] MEDS: amLODIPine 10 MG TABLET PO SCH (10:47)
[2020-09-06] MEDS: allopurinoL 300 MG TABLET PO SCH (10:48)
[2020-09-06] MEDS: PANTOPRAZOLE 40 MG TABLET PO SCH (10:48)
[2020-09-06 14:52] VITALS: BP 107/39
== END 2020-09-06 16:11 | DRG 193 ==
LOC: EDBD → EDUNIT# → N.ED 04:38 → N.EDINP 05:49 → SUATTDRO 05:49 → N.EDINP 07:23 → N.5E 07:51
PROVIDERS: ADMIT Internal Medicine; ATTEND Internal Medicine

== ENCOUNTER 2020-10-04 22:07 | Inpatient (IN) ==
[2020-10-04 22:32] LABS: Basophils % 0.3 % (0.0-0.8); Eosinophils # 0.1 10*3/uL (0.0-0.87); Eosinophils % 0.5 % (0.00-10.9); Hematocrit 26.6 VOL% (42.0-52.0); Hemoglobin 8.1 GM/DL (14.0-18.0); Immature Granulocytes % 0.6 %; Immature Granulocytes Absolute 0.09 #; Lymphocytes # 2.6 10*3/uL (1.4-4.0); Lymphocytes % 17.1 % (21.2-54.2); Mean Corpuscular HGB Conc 30.5 GM/DL (32-36); Mean Corpuscular Volume 98.9 FL (87-102); Monocytes % 11.4 % (1.7-12.7); NRBC # 0.03 10*3/uL; Neutrophils % 70.1 % (38.7-73.9); Platelet Count 180 T/CUMM (130-400); Red Blood Count 2.69 MC/CUMM (3.8-5.5); Red Cell Distribution Width 17.6 % (9.3-17.3); White Blood Count 15.1 T/CUMM (4-12)
[2020-10-04] MEDS ORDERED: MORPHINE 4 MG/1 ML VIAL ONE (22:42)
[2020-10-04] MEDS ORDERED: ONDANSETRON 4 MG/2 ML VIAL ONE (22:42)
[2020-10-04] MEDS ORDERED: ONDANSETRON 4 MG/2 ML VIAL IV STA (22:45)
[2020-10-04] MEDS ORDERED: MORPHINE 2 MG/1 ML SYRINGE IV STA (22:45)
[2020-10-04 22:49] LABS: INR 1.1; PT Patient Result 12.4 SECS (10.5-12.0); Partial Thromboplastin Time 32.6 SECS (23.9-33.8)
[2020-10-04 22:52] LABS: Albumin 2.5 G/DL (3.4-5.0); Bilirubin,Total 0.4 MG/DL (0.20-1.00); Calcium 9.7 MG/DL (8.5-10.1); Osmolality,Calculated 279.8 MOS/KG (273-304); Potassium 3.1 MMOL/L (3.5-5.1); Total Protein 6.8 G/DL (6.4-8.2)
[2020-10-04] MEDS ORDERED: PIPERACILLIN/TAZOBACTAM 2,250 MG in SODIUM CHLORIDE 0.9% 100 ML IV STA (23:45)
[2020-10-04] MEDS ORDERED: PIPERACILLIN/TAZOBACTAM 3,375 MG in SODIUM CHLORIDE 0.9% 100 ML IV STA (23:46)
[2020-10-04] MEDS ORDERED: SODIUM CHLORIDE 0.9% 500 ML IV STA (23:46)
[2020-10-05] MEDS ORDERED: ENOXAPARIN 100 MG/ML SYRINGE SUBCUT ONE (00:59)
[2020-10-05] MEDS ORDERED: ZALEPLON 5 MG CAPSULE PO PRN (01:03)
[2020-10-05] MEDS ORDERED: MORPHINE 2 MG/1 ML SYRINGE IV PRN (01:03)
[2020-10-05] MEDS ORDERED: NICOTINE 21 MG/24 HR PATCH TRANSDERM PRN (01:03)
[2020-10-05] MEDS ORDERED: DEXTROSE 50% 25 GM/50 ML VIAL IV PRN ×2 (01:03)
[2020-10-05] MEDS ORDERED: ONDANSETRON 4 MG/2 ML VIAL IV PRN (01:03)
[2020-10-05] MEDS ORDERED: GLUCAGON 1 MG VIAL IM PRN ×2 (01:03)
[2020-10-05] MEDS ORDERED: ACETAMINOPHEN 325 MG TABLET PO PRN (01:03)
[2020-10-05] MEDS ORDERED: diphenhydrAMINE CAP 25 MG CAPSULE PO PRN (01:03)
[2020-10-05] MEDS ORDERED: hydrALAZINE 20 MG/1 ML VIAL IV PRN (01:03)
[2020-10-05] MEDS ORDERED: guaiFENesin/DM ER 600-30 MG TABLET PO PRN (01:03)
[2020-10-05] MEDS ORDERED: VANCOMYCIN INJ 1,000 MG in SODIUM CHLORIDE 0.9% 250 ML IV ONE (01:08)
[2020-10-05] MEDS ORDERED: VANCOMYCIN INJ 750 MG in SODIUM CHLORIDE 0.9% 250 ML IV PRN (01:41)
[2020-10-05] MEDS ORDERED: VANCOMYCIN INJ 2,000 MG in SODIUM CHLORIDE 0.9% 500 ML IV ONE (04:00)
[2020-10-05 05:11] LABS: Basophils % 0.3 % (0.0-0.8); Eosinophils % 0.1 % (0.00-10.9); Hematocrit 25.1 VOL% (42.0-52.0); Hemoglobin 7.8 GM/DL (14.0-18.0); Immature Granulocytes % 0.8 %; Immature Granulocytes Absolute 0.11 #; Lymphocytes # 1.4 10*3/uL (1.4-4.0); Lymphocytes % 9.7 % (21.2-54.2); Mean Corpuscular HGB Conc 31.1 GM/DL (32-36); Mean Corpuscular Volume 96.5 FL (87-102); Mean Platelet Volume 11.7 FL (9.6-12.0); Monocytes % 12.1 % (1.7-12.7); NRBC # 0.03 10*3/uL; Platelet Count 163 T/CUMM (130-400); Red Cell Distribution Width 17.7 % (9.3-17.3); White Blood Count 14.4 T/CUMM (4-12)
[2020-10-05 05:24] LABS: Calcium 9.1 MG/DL (8.5-10.1); Osmolality,Calculated 280.8 MOS/KG (273-304); Potassium 3.6 MMOL/L (3.5-5.1)
[2020-10-05 05:36] LABS: Hypochromasia 1+; Lymphocytes 3 % (20-55); Platelet Estimate Normal; Segmented Neutrophils 89 % (50-85); Total Cells Counted 100
[2020-10-05] MEDS: ALBUTEROL/IPRATROPIUM 3 ML NEB RESP TX SCH ×3 (07:03→21:18)
[2020-10-05] MEDS ORDERED: PANTOPRAZOLE 40 MG TABLET PO SCH (09:00)
[2020-10-05] MEDS ORDERED: BISACODYL 5 MG TABLET PO SCH (09:00)
[2020-10-05] MEDS ORDERED: PIPERACILLIN/TAZOBACTAM 3,375 MG in SODIUM CHLORIDE 0.9% 100 ML IV SCH (09:00)
[2020-10-05 16:19] VITALS: BP 125/51
[2020-10-06] MEDS: ALBUTEROL/IPRATROPIUM 3 ML NEB RESP TX SCH (02:33)
== END 2020-10-06 03:18 | disposition expired | DRG 193 ==
LOC: EDUNIT# → EDBD → N.ED 22:07 → SUATTDRO 10-05 01:03 → N.EDINP 10-05 01:03 → N.TELEN 10-05 03:14
PROVIDERS: ADMIT Emergency Medicine; ATTEND Hospitalist